=== PATIENT | male | born 1930 | race Caucasian/White ===

== ENCOUNTER 2017-04-01 16:19 | Inpatient (IN) | payer MEDICARE, SELFPAY ==
[2017-04-01] MEDS ORDERED: Furosemide 40 MG/4 ML VIAL IVPUSH ONE (16:32)
[2017-04-01] MEDS ORDERED: Famotidine 20 MG/2 ML SDV IVPUSH ONE (16:32)
--- NOTE | 2017-04-01 16:33 | EDM.PDOC ---
ED HPI GENERAL MEDICAL PROBLEM - General Chief Complaint: Respiratory Problem Stated Complaint: SOB, cough Time Seen by Provider: 04/01/17 16:20 Source of Information: Reports: Patient, Other [place] [facility] [place] Denies: Old Records ([facility] chart/EMR) History Limitations: Reports: No Limitations - History of Present Illness INITIAL COMMENTS - FREE TEXT/NARRATIVE: The patient was brought to the emergency room via wheelchair by the clinic nurse [place] [facility] [place] initial brief evaluation in the clinic clinic with no treatment given. I did receive a telephone consultation by his regular provider , Chaparrita Guy PA-C, [place] [facility] [place] prior to [place] with blood work and chest x-ray results sent to the emergency room for our review. The patient does have a history of increasing dyspnea, clear productive cough, and increased oxygen use to 2.5 L/m since about midnight this past evening. The patient denies any chest pain/pressure, heart flutter, dizziness, orthostasis, orthopnea, diaphoresis, paresthesias, or any other anginal-type symptoms, although his overall activity level is low. No recent history of abdominal pain, heartburn, nausea, diarrhea, melena, gross hematochezia, or any food intolerance, including fatty foods, etc.. No apparent history of fever or known exposure to infection. He denies any noncompliance with his medical therapy. The patient has also continued to smoke. He denies any specific pain or discomfort Onset: Gradual Onset Date: 04/01/17 Onset Time: 00:00 Duration: Constant, Getting Worse Location: Reports: Other (No pain) Quality: Reports: Same as Previous Episode Severity: Moderate (Dyspnea) Improves with: Reports: Rest Worsens with: Reports: Movement (Activity) Context: Reports: Other (As above) Associated Symptoms: Reports: Cough, cough w sputum, Shortness of Breath. Denies: Confusion, Chest Pain, Diaphoresis, Fever/Chills, Headaches, Loss of Appetite, Malaise, Nausea/Vomiting, Rash, Seizure, Syncope, Weakness Treatments PLASTER MAKER: Reports: Other (see below) (None) - Related Data Allergies Allergy/AdvReac Type Severity Reaction Status Date / Time No Known Allergies Allergy Verified 04/01/17 16:25 Home Meds: Home Meds Albuterol Sulfate [Proair Hfa] 2 puff INH Q4H PRN 04/01/17 [History] Aspirin 325 mg PO DAILY 04/01/17 [History] Budesonide/Formoterol Fumarate [Symbicort 160-4.5 Mcg Inhaler] 1 puff IH BID [History] Carvedilol [Coreg] 12.5 mg PO BID 04/01/17 [History] Cholecalciferol (Vitamin D3) [Vitamin D3] 1,000 unit PO DAILY 04/01/17 [History] Folic Acid 800 mcg PO DAILY 04/01/17 [History] Furosemide [Lasix] 40 mg PO DAILY 04/01/17 [History] Methylsulfonylmethane [MSM] 1,000 mg PO DAILY 04/01/17 [History] Multivitamin [Multivitamins] 1 tab PO DAILY 04/01/17 [History] Ranitidine HCl [Ranitidine] 150 mg PO BID 04/01/17 [History] Tiotropium [Spiriva HandiHaler] 1 inh INH BEDTIME 04/01/17 [History] Tuberculin, PPD [Aplisol] 0.1 ml ID ONETIME 04/01/17 [History] Ubidecarenone [Coenzyme Q10] 200 mg PO DAILY 04/01/17 [History] amLODIPine [Norvasc] 10 mg PO DAILY 04/01/17 [History] atorvaSTATin Calcium [Atorvastatin Calcium] 40 mg PO BEDTIME 04/01/17 [History] hydrALAZINE [Apresoline] 20 mg PO TID 04/01/17 [History] Past Medical History HEENT History: Reports: Cataract, Hard of Hearing, Impaired Vision, Other (See Below). Denies: Allergic Rhinitis, Glaucoma, Macular Degeneration, Retinal Detachment Other HEENT History: he wears glasses, he is noncompliant with his hearing aide therapy with history of presbycusis Cardiovascular History: Reports: CAD, Heart Failure, High Cholesterol, Hypertension, [place], PVD, Other (See Below). Denies: Afib, Aneurysm, Arrhythmia, Blood Clots/VTE/DVT, Heart Murmur, Pacemaker, PTCA, Syncope Other Cardiovascular History: Carotid occlusive disease Respiratory History: Reports: COPD, Intubation, Previous, Pulmonary Fibrosis. Denies: PE, Pneumothorax, TB Gastrointestinal History: Reports: Colon Polyp, Diverticulosis, GERD. Denies: Celiac Disease, Cholelithiasis, Chronic Constipation, Chronic Diarrhea, Fecal Incontinence, Gastritis, GI Bleed, Inflammatory Bowel Disease, Irritable Bowel Syndrome, Pancreatitis, PUD Genitourinary History: Reports: BPH, Chronic Renal Insuffiency, Urinary Incontinence, Other (See Below). Denies: Acute Renal Failure, Renal Calculus, STD, UTI, Recurrent Other Genitourinary History: Renal insufficiency with history of hyperkalemia Musculoskeletal History: Reports: Arthritis, Back Pain, Chronic, Neck Pain, Chronic, Osteoarthritis, Osteoporosis. Denies: Amputation, Fracture, Gout, RA, SLE Neurological History: Reports: None, CVA, TIA. Denies: Cerebral Aneurysms, Concussion, Headaches, Chronic, Head Trauma, Migraines, MS, Neuropathy, Diabetic , Neuropathy, Peripheral, Parkinson's, Seizure Psychiatric History: Reports: None. Denies: Abuse, Victim of, ADD, ADHD, Addiction, Anxiety, Depression, Psych Hospitalization(s), PTSD, Suicide Attempt , Suicidal Ideation Endocrine/Metabolic History: Reports: Hyperparathyroidism, Vitamin D Deficiency , Other (See Below). Denies: Diabetes, Type II Other Endocrine/Metabolic History: Secondary hyperparathyroidism Hematologic History: Reports: Anemia, Folic Acid. Denies: Blood Transfusion(s) , Iron Deficiency Immunologic History: Reports: None. Denies: AIDS, HIV, SLE Oncologic (Cancer) History: Reports: Colon, Renal, Other (See Below). Denies: Hodgkin's Lymphoma, Leukemia, Lymphoma, Non-Hodgkin's Lymphoma Other Oncologic History: History of renal and colon cancer with surgery in 2002 as below, unknown type of skin cancer Dermatologic History: Reports: None. Denies: Eczema, Psoriasis - Infectious Disease History Infectious Disease History: Reports: Chicken Pox, Measles, Mumps, Rubella, Shingles (Right-sided facial herpes zoster with borderline herpes ophthalmicus in about 2013). Denies: C-Difficile, Meningitis, Mononucleosis, MRSA, Pertussis (Whooping Cough), Rheumatic Fever, Scarlet Fever, VRE - Past Surgical History Head Surgeries/Procedures: Reports: None HEENT Surgical History: Reports: Cataract Surgery, Eye Surgery, Oral Surgery, Other (See Below). Denies: Adenoidectomy, Laser Surgery, LASIK, Myringotomy w Tube(s), Naso-Sinus Surgery, Tonsillectomy Other HEENT Surgeries/Procedures: Bilateral cataract surgery in his 70s Cardiovascular Surgical History: Reports: None. Denies: Varicose, Vascular Surgery Respiratory Surgical History: Reports: None. Denies: Lung Biopsies, Thoracentesis GI Surgical History: Reports: Appendectomy, Cholecystectomy, Colonoscopy, Polypectomy, Other (See Below). Denies: EGD, Hernia, Abdominal, Hernia, Inguinal, Hernia Repair/Other Other GI Surgeries/Procedures: Appendectomy at age 8; right-sided nephrectomy secondary to renal cancer with concomitant colon resection secondary to colon cancer and cholecystectomy for nonsymptomatic disease in about 2002 with previous excision of multiple colonic polyps, apparent subsequent follow-up negative colonoscopy Male Surgical History: Reports: Circumcision, Nephrectomy, Vasectomy, Other ( See Below). Denies: TURP-Transurethral Resection of Prostate Other Male Surgeries/Procedures: Vasectomy at age 34, circumcision concomitant with appendectomy at age 8, right-sided nephrectomy secondary to cancer as above Endocrine Surgical History: Reports: None. Denies: Thyroid Biopsy Neurological Surgical History: Denies: C-Spine, Discectomy, Laminectomy, Lumbar Spine, Spinal Fusion, Vertebroplasty Musculoskeletal Surgical History: Reports: None. Denies: Arthroscopic Procedure , Carpal Tunnel, Ganglion Cyst, Joint Replacement, ORIF, Shoulder Surgery Oncologic Surgical History: Reports: Other (See Below) Other Oncologic Surgeries/Procedures: As above Dermatological Surgical History: Reports: Skin Biopsy, Other (See Below) Other Dermatological Surgeries/Procedures: Excision for unknown type of skin cancer Social & Family History - Family History HEENT: Reports: Retinal Detachment, Other (See Below). Denies: Glaucoma, Macular Degeneration Other HEENT Family History: Father with retinal detachment Cardiac: Reports: Aneurysm, CAD, [place], Pacemaker, Other (See Below). Denies: Afib , Arrhythmia, Blood Clots/VTE/DVT, Heart Failure, High Cholesterol, Hypertension Other Cardiac Family History: Sister with fatal [place] in her late 80s, mother with pacemaker and fatal [place] in her 50s Respiratory: Reports: None. Denies: Asthma, COPD, PE, Sleep Apnea GI: Reports: None. Denies: GERD, GI bleed, PUD : Reports: None. Denies: Dialysis, Renal Calculus, Renal Disease/ Insufficiency OBGYN: Reports: None. Denies: Endometriosis, Fibroids, Recurrent Spontaneous Musculoskeletal: Reports: None. Denies: Gout, RA, SLE Neurological: Reports: Cerebral Aneurysms, CVA, Other (See Below). Denies: Alzheimers Disease, Dementia, MS, Parkinson's, Seizure, TIA Other Neurological Family History: Sister with hemorrhagic CVA secondary to cerebral aneurysm in her 50s, father with fatal CVA at age 68 Psychiatric: Reports: None. Denies: Abuse, Victim of, ADD, ADHD, Anxiety, Depression, Psych Hospitalization(s), PTSD, Suicide Attempt Endocrine/Metabolic: Reports: Diabetes, type II, IDDM, Other (See Below). Denies: Hypothyroidism Other Endocrine/Metabolic Family History: Mother with AODM, sister with IDDM Hematologic: Reports: None. Denies: Anemia Immunologic: Reports: None. Denies: AIDS, HIV Dermatologic: Reports: None. Denies: Eczema, Psoriasis Oncologic: Reports: Other (See Below) Other Oncologic Family History: Sister with unknown type of fatal abdominal cancer in her late 40s - Tobacco Use Smoking Status *Q: Current Every Day Smoker Tobacco Use Within Last Twelve Months: Cigarettes Years of Tobacco use: 74 Packs/Tins Daily: 1 (Started smoking cigarettes at age 12 with occasional cigar use) Used Tobacco, but Quit: Yes Smoking Cessation Information Provided To Patient: Yes Second Hand Smoke Exposure: No Second Hand Smoke Education Provided: No - Caffeine Use Caffeine Use: Reports: Coffee (3 cups per day), Soda (2 sodas per day), Tea (1 cup every other day). Denies: Energy Drinks - Alcohol Use Alcohol Use History: Yes Days Per Week of Alcohol Use: 7 (No previous DWIs, problems with alcohol abuse, etc.) Number of Drinks Per Day: 1 (Usually rum) Total Drinks Per Week: 7 Alcohol Use in Last Twelve Months: Yes Alcohol Use Frequency: Daily - Recreational Drug Use Recreational Drug Use: No Drug Use in Last 12 Months: No Recreational Drug Type: Denies: Amphetamines (Speed), Cocaine, Heroin, LSD (Acid ), Marijuana/Hashish, Methamphetamine, Morphine - Living Situation & Occupation Living situation: Reports: ( from second in about 2008, from first at age 49 with 2 children from that relationship), Extended Care Facility (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 Denies: Fever, Chills, Malaise, Weakness, Fatigue, Night Sweats, Diaphoresis, Decreased Appetite, Weight Gain HEENT: Reports: Glasses (Occasional), Hearing Loss (Stable moderate bilateral stable by history). Denies: Dental Pain, Ear Pain, Nose Pain, Rhinitis, Sinus Problem, Throat Pain, Throat Swelling, Vertigo, Vision Change Respiratory: Reports: Shortness of Breath, Wheezing, Cough, Sputum (Clear). Denies: Pleuritic Chest Pain Cardiovascular: Reports: Dyspnea on Exertion, Edema (Progressive dependent edema ). Denies: Chest Pain, Blood Pressure Problem, Lightheadedness, Orthopnea, Palpitations, Syncope Endocrine: Reports: No Symptoms. Denies: Fatigue GI/Abdominal: Denies: Abdominal Pain, Anorexia, Black Stool, Bloody Stool, Constipation, Diarrhea, Decreased Appetite, Distension, Hematemesis, Hematochezia, Melena, Nausea, Stool Incontinence, Vomiting : Reports: No Symptoms, Incontinence (Stable by history). Denies: Dysuria, Flank Pain, Frequency, Hematuria, Pain, Urgency, Urinary Retention Musculoskeletal: Reports: No Symptoms. Denies: Neck Pain, Shoulder Pain, Arm Pain, Back Pain, Leg Pain Skin: Reports: No Symptoms. Denies: Diaphoresis, Wound Neurological: Reports: Weakness (Nonspecific generalized). Denies: Confusion, Dizziness, Headache, Numbness, Paresthesia, Seizure, Syncope, Tingling Psychiatric: Reports: No Symptoms. Denies: Agitation, Anxiety, Confusion, Depression, Hallucinations Hematologic/Lymphatic: Reports: Anemia (Progressive) Immunologic: Reports: No Symptoms ED EXAM, GENERAL - Physical Exam Exam: See Below Exam Limited By: No Limitations General Appearance: Alert, WD/WN, No Apparent Distress Eye Exam: Bilateral Eye: EOMI, Normal Inspection (No nystagmus), PERRL Ears: Normal External Exam, Normal Canal, Normal TMs, Hearing Loss (Moderate bilateral presbycusis no hearing aids) Nose: Normal Inspection, Normal Mucosa, No Blood, Clear Rhinorrhea (Mild) Throat/Mouth: Normal Inspection, Normal Lips, Normal Gums, Normal Oropharynx, Normal Voice, No Airway Compromise. No: Normal Teeth (Complete dentures uppers and lowers) Head: Atraumatic, Normocephalic, Facial Swelling (Mild anasarca). No: Facial Tenderness, Sinus Tenderness Neck: Normal Inspection, Supple, Non-Tender, Full Range of Motion, Carotid Bruit (Mild bilateral carotid bruits). No: Lymphadenopathy (L), Lymphadenopathy (R), Thyromegaly Respiratory/Chest: No Respiratory Distress, No Accessory Muscle Use, Chest Non- Tender, Decreased Breath Sounds (Left base), Rales (Moderate bilateral basilar rales), Rhonchi (Mild diffuse bilateral), Wheezing (Occasional). No: Pleural Rub, Retractions, Splinting Cardiovascular: Normal Peripheral Pulses, Regular Rate, Rhythm (Although occasional borderline bradycardia), No Edema, No Gallop, No JVD, No Murmur, No Rub, Bradycardia (As above). No: Gallop/S3, Gallop/S4, Friction Rub Peripheral Pulses: 2+: Radial (L), Radial (R), Dorsalis Pedis (L), Dorsalis Pedis (R) GI/Abdominal: Normal Bowel Sounds, Soft, Non-Tender, No Organomegaly, No Distention, No Abnormal Bruit, No Mass, Pelvis Stable, Other (Large midline abdominal incisions). No: Guarding (Male) Exam: Deferred Rectal (Males) Exam: Normal Rectal Tone, BPH (Moderate nonnodular BPH), Heme - Stool, Hemorrhoids (Grade 23 internal/external hemorrhoids). No: Black Stool, Bloody Stool, Fecal Impaction, Prostate Nodule, Tenderness (No Enrike space tenderness) Back Exam: Normal Inspection, Full Range of Motion. No: CVA Tenderness (L), CVA Tenderness (R), Muscle Spasm Extremities: Normal Range of Motion, Non-Tender, Normal Capillary Refill, Pedal Edema (+2 to +3 bilateral pitting pedal/pretibial edema). No: Travis's Sign Neurological: Alert, Oriented, CN II-XII Intact, Normal Cognition, Normal Gait, Normal Reflexes (Negative Babinski's), No Motor/Sensory Deficits Psychiatric: Normal Affect, Normal Mood Skin Exam: Warm, Dry, Intact, Normal Color, No Rash, Pallor (Mild). No: Diaphoretic, Ecchymosis, Petechiae, Wound/Incision Lymphatic: No Adenopathy EKG INTERPRETATION EKG Date: 04/01/17 Time: 16:32 Rhythm: NSR (Sinus bradycardia) Rate (Beats/Min): 56 [place]: Normal (Neutral) P-Wave: Present (Mild diffuse biphasic P waves with T-wave inversion in lead V1 and extreme poor R-wave progression in the anterior leads) QRS: Other (QRS interval of 0.10 seconds representing an incomplete bifascicular bundle branch block) ST-T: Normal QT: Normal NE/PQ Interval: 0.15 seconds Comparison: NA - No Prior EKG EKG Interpretation Comments: 1. No acute ischemic changes 2. Incomplete bifascicular bundle branch block Course - Vital Signs Last Recorded V/S: Last Vital Signs Temp 36.4 C 04/01/17 16:22 Pulse 63 04/01/17 17:15 Resp 19 04/01/17 17:15 BP 155/71 H 04/01/17 17:15 Pulse Ox 90 L 04/01/17 17:15 Vital Signs - 24 hr 04/01/17 04/01/17 04/01/17 16:22 16:30 16:45 Temperature [ 36.4 C Temporal] Pulse, 57 L 57 L 62 Peripheral [ Right Pulse Oximetry] Respiratory 14 14 Rate Blood Pressure 155/53 H 155/55 H [Right Upper Arm] O2 Sat by Pulse 2 L 97 91 L Oximetry 04/01/17 04/01/17 04/01/17 17:00 17:15 17:30 Temperature [ Temporal] Pulse, 60 63 60 Peripheral [ Right Pulse Oximetry] Respiratory 19 19 19 Rate Blood Pressure 155/71 H 164/50 H [Right Upper Arm] O2 Sat by Pulse 95 90 L 96 Oximetry 04/01/17 04/01/17 04/01/17 17:43 18:00 18:18 Temperature [ Temporal] Pulse, 65 62 66 Peripheral [ Right Pulse Oximetry] Respiratory 19 20 18 Rate Blood Pressure 153/50 H 163/53 H 160/49 H [Right Upper Arm] O2 Sat by Pulse 92 L 97 90 L Oximetry - Orders/Labs/Meds Orders: Active Orders 24 hr Category Date Time Status EKG Documentation Completion [RC] ASDIRECTED Care 04/01/17 16:30 Active Oxygen Therapy, ED [RC] CONTINUOUS Care 04/01/17 16:28 Active Peripheral IV Care [RC] . DIRECTED Care 04/01/17 16:30 Active Pulse Oximetry [RC] CONTINUOUS Care 04/01/17 16:29 Active RT Aerosol Therapy [RC] ASDIRECTED Care 04/01/17 17:12 Active Up With Assistance [RC] PFP Care 04/01/17 16:30 Active Nothing per Oral Now Diet [DIET] Diet 04/01/17 Breakfast Active CULTURE BLOOD [BC] Stat Lab 04/01/17 16:50 Received CULTURE BLOOD [BC] Stat Lab 04/01/17 17:15 Received OCCULT BLOOD DIAGNOSTIC [OP] Stat Lab 04/01/17 16:28 Ordered Sodium Chloride 0.9% [Saline Flush] Med 04/01/17 16:27 Active 10 ml FLUSH ASDIRECTED PRN Blood Culture x2 Reflex Set [OM.PC] Urgent Oth 04/01/17 16:27 Ordered Obtain Past Medical Record [OM.PC] Urgent Oth 04/01/17 16:28 Active Peripheral IV Insertion Adult [OM.PC] Stat Oth 04/01/17 16:29 Ordered Resuscitation Status Routine Resus Stat 04/01/17 16:30 Ordered Medication Orders Sodium Chloride (Saline Flush) 10 ml FLUSH ASDIRECTED PRN PRN Reason: Keep Vein Open Last Admin: 04/01/17 17:25 Dose: 10 ml Labs: Laboratory Tests 04/01/17 04/01/17 04/01/17 Range/Units 16:50 16:50 16:50 PT (9.8-11.7) SEC INR APTT (23.5-30.0) SEC D-Dimer, Quantitative 1250 H (0-400) ng/mL Hemoglobin A1c 5.2 (4.3-5.7) % Lactic Acid (0.4-2.0) mmol/L Uric Acid 6.4 (2.6-7.2) mg/dL Phosphorus 4.8 H (2.6-4.7) mg/dL Magnesium 1.9 (1.8-2.4) mg/dL Creatine Kinase 106 (26-308) U/L Creatine Kinase Index 2.5 (0.0-2.5) % CK-MB (CK-2) 2.70 (0.00-3.60) ng/mL Troponin I 0.006 (0.000-0.056) ng/mL TSH, Ultra Sensitive 3.507 (0.358-3.740) mIU/mL 04/01/17 04/01/17 04/01/17 Range/Units 16:50 16:50 16:50 PT 10.7 (9.8-11.7) SEC INR 1.0 APTT 28.7 (23.5-30.0) SEC D-Dimer, Quantitative (0-400) ng/mL Hemoglobin A1c (4.3-5.7) % Lactic Acid 0.8 (0.4-2.0) mmol/L Uric Acid (2.6-7.2) mg/dL Phosphorus (2.6-4.7) mg/dL Magnesium (1.8-2.4) mg/dL Creatine Kinase (26-308) U/L Creatine Kinase Index (0.0-2.5) % CK-MB (CK-2) (0.00-3.60) ng/mL Troponin I (0.000-0.056) ng/mL TSH, Ultra Sensitive (0.358-3.740) mIU/mL [place] [facility] [place] a normal comprehensive metabolic panel with exception of potassium of 5.2, chloride 108, BUN of 47, creatinine of 2.75, total protein of 5.7 and albumin of 2.1. CRP elevated to 3.4, BNP elevated at 30 ,759. CBC was normal with exception of progressive decreased hemoglobin of 8.9 with hemoglobin of 9.9 on 03/29/17. Hematocrit decreased to 27.4 and MCV 104.6. Microbiology 04/01/17 16:28 Stool Occult Blood (LIZETTE) - Final Stool / Feces NEGATIVE OCCULT BLOOD Meds: Medications Generic Name Dose Route Start Last Admin Trade Name Freq PRN Reason Stop Dose Admin Sodium Chloride 10 ml 04/01/17 16:27 04/01/17 17:25 Saline Flush FLUSH 10 ml ASDIRECTED PRN Administration Keep Vein Open Discontinued Medications Generic Name Dose Route Start Last Admin Trade Name Freq PRN Reason Stop Dose Admin Albuterol/Ipratropium 3 ml 04/01/17 17:12 04/01/17 17:15 Duoneb 3.0-0.5 Mg/3 Ml NEB 04/01/17 17:13 3 ml ONETIME ONE Administration Budesonide 0.5 mg 04/01/17 17:12 04/01/17 17:24 Pulmicort NEB 04/01/17 17:13 0.5 mg ONETIME ONE Administration Famotidine 40 mg 04/01/17 16:32 04/01/17 16:55 Pepcid IVPUSH 04/01/17 16:33 40 mg ONETIME ONE Administration Furosemide 60 mg 04/01/17 16:32 04/01/17 16:55 Lasix IVPUSH 04/01/17 16:33 60 mg NOW ONE Administration Morphine Sulfate 2 mg 04/01/17 17:44 04/01/17 17:49 Morphine .XX 04/01/17 17:45 2 mg ONETIME ONE Administration - Radiology Interpretation Free Text/Narrative:: Gun Number shows normal sinus rhythm with occasional mild sinus bradycardia in the high 50s with average rate in the low 60s. No ectopy or arrhythmia Chest x-ray, 2 views, shows evidence of moderate COPD and pulmonary fibrotic changes with questionable right middle lobe infiltrate. Mild aortic valve calcification and prominence of aortic arch with no cardiomegaly, however moderate CHF including moderate left-sided pleural effusion and small right sided pleural effusion. Moderate osteoarthritic and osteoporotic changes in the thoracic spine. Departure - Departure Time of Disposition: 18:20 Disposition: Admitted As Inpatient 65 Condition: Poor Clinical Impression: CHF (congestive heart failure), Pneumonia, COPD (chronic obstructive pulmonary disease), Coronary artery disease, Osteoarthritis, Macrocytic anemia, Peptic reflux disease, Hypertension, Renal insufficiency, Secondary hyperparathyroidism , Hyperlipidemia, Comfort measures only status, D-dimer, elevated, Tobacco abuse counseling, Hyperphosphatemia, Hypoalbuminemia - Discharge Information - Problem List & Annotations (1) CHF (congestive heart failure) SNOMED Code(s): 19724715 Code(s): I50.9 - HEART FAILURE, UNSPECIFIED Status: Acute Priority: High Current Visit: Yes Onset Date: 04/01/17 Annotation/Comment:: Significant CHF based on clinical exam, BNP, and chest x-ray today. High-dose IV Lasix given in the emergency room. No further extensive cardiac workup, including echocardiogram, etc. per his comfort care status as below. Continue aggressive IV Lasix therapy. Telephone consultation at 17:[address] Gavin, hospitalist at the [facility], who does not have a bed available in that facility. Various therapeutic options were discussed with the patient who agrees to admission to our facility. Initiate standard rule out [place] orders, however no recent anginal complaints. Giancarlo Luna M.D., at the [facility], assumes patient care in the pending sale to [facility] area. Observe left pleural effusion for now with consideration of thoracentesis, if this remains refractory to aggressive Lasix therapy Qualifiers: Congestive heart failure type: unspecified congestive heart failure type Congestive heart failure chronicity: acute on chronic Qualified Code(s): I50.9 - Heart failure, unspecified (2) Coronary artery disease SNOMED Code(s): 99386996 Code(s): I25.10 - ATHSCL HEART DISEASE OF [place] CORONARY ARTERY W/O ANG PCTRS Status: Chronic Priority: High Current Visit: Yes Annotation/ Comment:: Patient apparently has a distant history of [place], however specifics unknown and patient could not give us more detail. No recent chest pain or anginal type symptoms with chest pain protocol not initiated in the emergency room. Otherwise as above Qualifiers: Coronary Disease-Associated Artery/Lesion type: [place] artery [place] vs. transplanted heart: [place] heart Associated angina: without angina Qualified Code(s): I25.10 - Atherosclerotic heart disease of [place] coronary artery without angina pectoris (3) Pneumonia SNOMED Code(s): 622806217 Code(s): J18.9 - PNEUMONIA, UNSPECIFIED ORGANISM Status: Acute Priority: High Current Visit: Yes Onset Date: 04/01/17 Annotation/Comment:: Possible right middle lobe pneumonia as above. Blood cultures 2 were collected. Initiate IV antibiotic therapy and aggressive nebulizer treatments shortly after admission Qualifiers: Pneumonia type: due to unspecified organism Laterality: right Lung location: middle lobe of lung Qualified Code(s): J18.1 - Lobar pneumonia, unspecified organism (4) Comfort measures only status SNOMED Code(s): 19535831975865 Code(s): Z51.5 - ENCOUNTER FOR PALLIATIVE CARE Status: Chronic Priority: High Current Visit: Yes Onset Date: 04/01/17 Annotation/Comment:: Comfort Care status/NO CODE status confirmed with the patient today, although he is agreeable to transfer to [facility] (5) COPD (chronic obstructive pulmonary disease) SNOMED Code(s): 93892846 Code(s): J44.9 - CHRONIC OBSTRUCTIVE PULMONARY DISEASE, UNSPECIFIED Status : Acute Priority: High Current Visit: Yes Annotation/Comment:: COPD exacerbation secondary to possible middle lobe pneumonia however note concomitant CHF and 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 Triple nebulizer treatment given in the emergency room with additional morphine nebulizer treatment required prior to admission Qualifiers: COPD type: COPD with acute lower respiratory infection Qualified Code(s): J44.0 - Chronic obstructive pulmonary disease with acute lower respiratory infection (6) Hyperlipidemia SNOMED Code(s): 77479610 Code(s): E78.5 - HYPERLIPIDEMIA, UNSPECIFIED Status: Chronic Priority: Medium Current Visit: Yes Annotation/Comment:: Lipid panel in the a.m. Qualifiers: Hyperlipidemia type: unspecified Qualified Code(s): E78.5 - Hyperlipidemia , unspecified (7) Hypertension SNOMED Code(s): 79927506 Code(s): I10 - ESSENTIAL (PRIMARY) HYPERTENSION Status: Chronic Priority : Medium Current Visit: Yes Annotation/Comment:: Blood pressures were under good control in the emergency room Qualifiers: Hypertension type: essential hypertension Qualified Code(s): I10 - Essential (primary) hypertension (8) Macrocytic anemia SNOMED Code(s): 08088650 Code(s): D53.9 - NUTRITIONAL ANEMIA, UNSPECIFIED Status: Acute Priority: Medium Current Visit: Yes Annotation/Comment:: Note progressive anemia with history of folic acid deficiency. No direct evidence of acute GI bleed. Also note significant renal disease as above, previous nephrectomy, etc.. Further workup for anemia in the a.m. (9) Osteoarthritis SNOMED Code(s): 437759166 Code(s): M19.90 - UNSPECIFIED OSTEOARTHRITIS, UNSPECIFIED SITE Status: Chronic Priority: Medium Current Visit: Yes Annotation/Comment:: Stable by history Qualifiers: Osteoarthritis location: multiple joints Osteoarthritis type: primary Qualified Code(s): M15.0 - Primary generalized (osteo)arthritis (10) Peptic reflux disease SNOMED Code(s): 11340352 Code(s): K21.9 - GASTRO-ESOPHAGEAL REFLUX DISEASE WITHOUT ESOPHAGITIS Status: Chronic Priority: Medium Current Visit: Yes Annotation/Comment:: Stable by history with high-dose IV Pepcid given in the emergency room (11) Renal insufficiency SNOMED Code(s): 003864263 Code(s): N28.9 - DISORDER OF KIDNEY AND URETER, UNSPECIFIED Status: Chronic Priority: High Current Visit: Yes Annotation/Comment:: Continue to observe closely especially with IV Lasix therapy. Note some mild hyperkalemia today (12) Secondary hyperparathyroidism SNOMED Code(s): 89006948 Code(s): N25.81 - SECONDARY HYPERPARATHYROIDISM OF RENAL ORIGIN Status: Chronic Priority: Medium Current Visit: Yes Annotation/Comment:: Likely secondary to renal disease. Observe for now. Consider PTH depending on his clinical course (13) Tobacco abuse counseling SNOMED Code(s): 632219159, 781116136, 452523471 Code(s): Z71.6 - TOBACCO ABUSE COUNSELING Status: Chronic Priority: Medium Current Visit: Yes Annotation/Comment:: Tobacco cessation strongly encouraged, however he is not interested in this at this time (14) D-dimer, elevated SNOMED Code(s): 850754947 Code(s): R79.89 - OTHER SPECIFIED ABNORMAL FINDINGS OF BLOOD CHEMISTRY Status: Acute Priority: High Current Visit: Yes Onset Date: 04/01/17 Annotation/Comment:: No direct clinical evidence of a PE or DVT, however patient is not a candidate for CTA of the chest secondary to his renal disease. Venous Doppler studies of the lower extremities are to be conducted in the a.m. (15) Hyperphosphatemia SNOMED Code(s): 14784067 Code(s): E83.39 - OTHER DISORDERS OF PHOSPHORUS METABOLISM Status: Acute Priority: Medium Current Visit: Yes Onset Date: 04/01/17 Annotation/ Comment:: Note renal insufficiency. Initiate PhosLo (16) Hypoalbuminemia SNOMED Code(s): 052722693 Code(s): E88.09 - OTH DISORDERS OF PLASMA-PROTEIN METABOLISM, NEC Status: Acute Priority: Medium Current Visit: Yes Onset Date: 04/01/17 Annotation/Comment:: Initiate high-protein Glucerna supplements as snacks with caution secondary to his renal insufficiency - Problem List Review Problem List Initiated/Reviewed/Updated: Yes - My Orders Last 24 Hours: My Active Orders 04/01/17 16:27 Sodium Chloride 0.9% [Saline Flush] 10 ml FLUSH ASDIRECTED PRN Blood Culture x2 Reflex Set [OM.PC] Urgent 04/01/17 16:28 Oxygen Therapy, ED [RC] CONTINUOUS OCCULT BLOOD DIAGNOSTIC [OP] Stat Obtain Past Medical Record [OM.PC] Urgent 04/01/17 16:29 Pulse Oximetry [RC] CONTINUOUS Peripheral IV Insertion Adult [OM.PC] Stat 04/01/17 16:30 EKG Documentation Completion [RC] ASDIRECTED Peripheral IV Care [RC] . DIRECTED Up With Assistance [RC] PFP Resuscitation Status Routine 04/01/17 16:50 CULTURE BLOOD [BC] Stat 04/01/17 17:12 RT Aerosol Therapy [RC] ASDIRECTED 04/01/17 17:15 CULTURE BLOOD [BC] Stat 04/01/17 Breakfast Nothing per Oral Now Diet [DIET] - Assessment/Plan Admission H&P: Please use this note as an admission H&P Last 24 Hours: My Active Orders 04/01/17 16:27 Sodium Chloride 0.9% [Saline Flush] 10 ml FLUSH ASDIRECTED PRN Blood Culture x2 Reflex Set [OM.PC] Urgent 04/01/17 16:28 Oxygen Therapy, ED [RC] CONTINUOUS OCCULT BLOOD DIAGNOSTIC [OP] Stat Obtain Past Medical Record [OM.PC] Urgent 04/01/17 16:29 Pulse Oximetry [RC] CONTINUOUS Peripheral IV Insertion Adult [OM.PC] Stat 04/01/17 16:30 EKG Documentation Completion [RC] ASDIRECTED Peripheral IV Care [RC] . DIRECTED Up With Assistance [RC] PFP Resuscitation Status Routine 04/01/17 16:50 CULTURE BLOOD [BC] Stat 04/01/17 17:12 RT Aerosol Therapy [RC] ASDIRECTED 04/01/17 17:15 CULTURE BLOOD [BC] Stat 04/01/17 Breakfast Nothing per Oral Now Diet [DIET] Assessment:: As above Plan: As above. Extensive precautions were given to the patient, who is in agreement with the treatment plan. The patient will require about 3-4 days of inpatient/ acute care secondary to multiple health problems as above.
[2017-04-01] MEDS ORDERED: Albuterol/Ipratropium 3.0-0.5 MG/3 ML Neb Soln NEB ONE (17:12)
[2017-04-01] MEDS ORDERED: Budesonide 0.5 MG/2 ML Neb Susp NEB ONE (17:12)
[2017-04-01] MEDS: Sodium Chloride 0.9% 10 ML Syringe FLUSH PRN ×2 (17:25→20:22)
[2017-04-01] MEDS ORDERED: Morphine 2 MG/ML Syringe ONE (17:44)
[2017-04-01] MEDS ORDERED: Temazepam 15 MG Cap PO PRN (18:25)
[2017-04-01] MEDS ORDERED: Albuterol/Ipratropium 3.0-0.5 MG/3 ML Neb Soln NEB PRN (18:25)
[2017-04-01] MEDS ORDERED: Morphine 2 MG/ML Syringe IVPUSH PRN (18:37)
[2017-04-01] MEDS: Sodium Chloride 0.9% 10 ML Syringe FLUSH SCH (19:33)
[2017-04-01] MEDS: Calcium Acetate 667 MG Cap PO SCH (19:33)
[2017-04-01] MEDS: Albuterol/Ipratropium 3.0-0.5 MG/3 ML Neb Soln NEB SCH (19:35)
[2017-04-01] MEDS: cefTRIAXone 1 GM in Sodium Chloride 0.9% 100 ML IV SCH (19:35)
[2017-04-01] MEDS ORDERED: atorvaSTATin 40 MG Tab PO SCH (20:00)
[2017-04-01] MEDS ORDERED: Tiotropium Inhaler 18 MCG Inhalation Powder Cap Kit of 5 INH SCH (20:00)
[2017-04-01] MEDS ORDERED: Ciprofloxacin in D5W 200 MG in Premix Bag 1 BAG IV SCH ×2 (20:00)
[2017-04-01] MEDS ORDERED: Albuterol/Ipratropium 3.0-0.5 MG/3 ML Neb Soln NEB SCH (20:00)
[2017-04-02] MEDS: Albuterol 0.083% 2.5 MG/3 ML Neb Soln NEB PRN ×3 (00:08→13:57)
[2017-04-02] MEDS: Sodium Chloride 0.9% 10 ML Syringe FLUSH PRN ×2 (00:09→15:10)
[2017-04-02] MEDS: Furosemide 40 MG/4 ML VIAL IVPUSH SCH ×3 (00:09→07:06)
[2017-04-02] MEDS: Albuterol/Ipratropium 3.0-0.5 MG/3 ML Neb Soln NEB SCH ×3 (02:04→13:05)
[2017-04-02] MEDS: cefTRIAXone 1 GM in Sodium Chloride 0.9% 100 ML IV SCH (06:40)
[2017-04-02] MEDS: Sodium Chloride 0.9% 10 ML Syringe FLUSH SCH (06:41)
[2017-04-02] MEDS: Budesonide 0.5 MG/2 ML Neb Susp NEB SCH ×2 (06:41→09:10)
[2017-04-02] MEDS ORDERED: Magnesium Sulfate (4.06 MEQ/ML) 1 GM/2 ML SDV IV ONE (06:59)
[2017-04-02] MEDS ORDERED: Morphine 2 MG/ML Syringe IVPUSH PRN ×2 (07:03→15:00)
[2017-04-02] MEDS ORDERED: Magnesium Sulfate/Water 2 GM in Premix Bag 1 BAG IV ONE (07:30)
[2017-04-02] MEDS: Calcium Acetate 667 MG Cap PO SCH (07:42)
[2017-04-02] MEDS ORDERED: Dextromethorphan/guaiFENesin 600-30 MG Tab.ER PO SCH (08:00)
[2017-04-02] MEDS ORDERED: FOLIC ACID 800 MCG PO SCH (08:00)
[2017-04-02] MEDS ORDERED: Non-Formulary Medication 1 Each (Budesonide/Formoterol Fumarate 1 PUFF) IH SCH (08:00)
[2017-04-02] MEDS ORDERED: Carvedilol 12.5 MG Tab PO SCH (08:00)
[2017-04-02] MEDS ORDERED: Folic Acid 1 MG Tab PO SCH (08:00)
[2017-04-02] MEDS ORDERED: amLODIPine 5 MG Tab PO SCH (08:00)
[2017-04-02] MEDS ORDERED: Aspirin 325 MG Tab PO SCH (08:00)
[2017-04-02] MEDS: HYDRALAZINE 10 MG PO SCH ×2 (09:10→12:54)
[2017-04-02] MEDS ORDERED: Furosemide 40 MG/4 ML VIAL IVPUSH SCH (12:00)
--- NOTE | 2017-04-02 12:39 | PCM.PN ---
- General Info Date of Service: 04/02/17 Functional Status: Reports: Other (SOB) - Review of Systems General: Reports: Weakness, Fatigue HEENT: Reports: No Symptoms Pulmonary: Reports: Shortness of Breath Cardiovascular: Reports: No Symptoms Gastrointestinal: Reports: No Symptoms Genitourinary: Reports: Incontinence, Other ([place] placed) Musculoskeletal: Reports: No Symptoms Skin: Reports: No Symptoms Neurological: Reports: No Symptoms Psychiatric: Reports: No Symptoms Systems Review Comment:: Patient complains of shortness of breath worse in the morning was decreased feels better now - Patient Data Vitals - Most Recent: Last Vital Signs Temp 97.8 F 04/02/17 09:52 Pulse 61 04/02/17 09:52 Resp 20 04/02/17 09:52 BP 157/55 H 04/02/17 09:52 Pulse Ox 92 L 04/02/17 09:52 Weight - Most Recent: 157 lb I&O - Last 24 Hours: Intake & Output 04/01/17 04/02/17 04/02/17 22:59 06:59 14:59 Intake Total 650 1050 Output Total 420 950 Balance 230 -950 1050 Lab Results Last 24 Hours: Laboratory Results - last 24 hr 04/02/17 04/02/17 04/02/17 Range/Units 07:00 07:00 07:00 WBC 8.2 (4.0-10.2) K/uL RBC 2.60 L (4.33-5.41) M/uL Hgb 8.8 L (13.1-16.8) g/dL Hct 27.4 L (39.0-49.0) % MCV 105.4 H (84.0-98.0) fL MCH 33.8 H (28.2-33.3) pg MCHC 32.1 (31.7-36.0) g/dL RDW 14.7 H (11.2-14.1) % Plt Count 195 (150-350) K/uL Neut % (Auto) 72.9 (45.0-80.0) % Lymph % (Auto) 9.7 L (10.0-50.0) % [place] % (Auto) 12.4 (2.0-14.0) % Eos % (Auto) 4.6 (0.0-5.0) % Baso % (Auto) 0.4 (0.0-2.0) % Neut # (Auto) 5.99 (1.40-7.00) K/uL Lymph # (Auto) 0.80 (0.50-3.50) K/uL [place] # (Auto) 1.02 H (0.00-1.00) K/uL Eos # (Auto) 0.38 (0.00-0.50) K/uL Baso # (Auto) 0.03 (0.00-0.20) K/uL D-Dimer, Quantitative 1500 H (0-400) ng/mL Sodium 142 (136-145) mmol/L Potassium 4.5 (3.5-5.1) mmol/L Chloride 108 H (98-107) mmol/L Carbon Dioxide 30.2 (21.0-32.0) mmol/L BUN 47 H (7-18) mg/dL Creatinine 2.79 H (0.51-1.17) mg/dL Est Cr Clr Drug Dosing 18.79 mL/min Estimated GFR (MDRD) 22 mL/min Glucose 97 (74-106) mg/dL Calcium 8.2 L (8.5-10.1) mg/dL Iron (50-175) ug/dL TIBC (250-450) ug/dL % Saturation Ferritin (8-388) ng/mL Total Bilirubin 0.2 (0.2-1.0) mg/dL AST 24 (15-37) U/L ALT 20 (12-78) U/L Alkaline Phosphatase 68 (46-116) IU/L Creatine Kinase 81 (26-308) U/L Creatine Kinase Index 3.2 H (0.0-2.5) % CK-MB (CK-2) 2.60 (0.00-3.60) ng/mL Troponin I 0.016 (0.000-0.056) ng/mL NT-Pro-B Natriuret Pep 71530 H (0-125) pg/mL Total Protein 5.5 L (6.4-8.2) g/dL Albumin 2.0 L (3.4-5.0) g/dL Triglycerides 59 (30-150) mg/dL Cholesterol 132 (100-200) mg/dL LDL Cholesterol, Calc 43 (0-100) mg/dL HDL Cholesterol 77 H (40-60) mg/dL Vitamin B12 585 (193-986) pg/mL 04/02/17 Range/Units 07:00 WBC (4.0-10.2) K/uL RBC (4.33-5.41) M/uL Hgb (13.1-16.8) g/dL Hct (39.0-49.0) % MCV (84.0-98.0) fL MCH (28.2-33.3) pg MCHC (31.7-36.0) g/dL RDW (11.2-14.1) % Plt Count (150-350) K/uL Neut % (Auto) (45.0-80.0) % Lymph % (Auto) (10.0-50.0) % [place] % (Auto) (2.0-14.0) % Eos % (Auto) (0.0-5.0) % Baso % (Auto) (0.0-2.0) % Neut # (Auto) (1.40-7.00) K/uL Lymph # (Auto) (0.50-3.50) K/uL [place] # (Auto) (0.00-1.00) K/uL Eos # (Auto) (0.00-0.50) K/uL Baso # (Auto) (0.00-0.20) K/uL D-Dimer, Quantitative (0-400) ng/mL Sodium (136-145) mmol/L Potassium (3.5-5.1) mmol/L Chloride (98-107) mmol/L Carbon Dioxide (21.0-32.0) mmol/L BUN (7-18) mg/dL Creatinine (0.51-1.17) mg/dL Est Cr Clr Drug Dosing mL/min Estimated GFR (MDRD) mL/min Glucose (74-106) mg/dL Calcium (8.5-10.1) mg/dL Iron 27 L (50-175) ug/dL TIBC 198 L (250-450) ug/dL % Saturation 13.25141 Ferritin 95 (8-388) ng/mL Total Bilirubin (0.2-1.0) mg/dL AST (15-37) U/L ALT (12-78) U/L Alkaline Phosphatase (46-116) IU/L Creatine Kinase (26-308) U/L Creatine Kinase Index (0.0-2.5) % CK-MB (CK-2) (0.00-3.60) ng/mL Troponin I (0.000-0.056) ng/mL NT-Pro-B Natriuret Pep (0-125) pg/mL Total Protein (6.4-8.2) g/dL Albumin (3.4-5.0) g/dL Triglycerides (30-150) mg/dL Cholesterol (100-200) mg/dL LDL Cholesterol, Calc (0-100) mg/dL HDL Cholesterol (40-60) mg/dL Vitamin B12 (193-986) pg/mL Med Orders - Current: Current Medications Albuterol (Proventil Neb Soln) 2.5 mg NEB Q2H PRN PRN Reason: Dyspnea Last Admin: 04/02/17 05:58 Dose: 2.5 mg Albuterol/Ipratropium (Duoneb 3.0-0.5 Mg/3 Ml) 3 ml NEB Q4HRRT PRN PRN Reason: Dyspnea Last Admin: 04/02/17 06:41 Dose: 3 ml Albuterol/Ipratropium (Duoneb 3.0-0.5 Mg/3 Ml) 3 ml NEB Q6HRRT [facility] Last Admin: 04/02/17 09:10 Dose: 3 ml Amlodipine Besylate (Norvasc) 10 mg PO DAILY [facility] Last Admin: 04/02/17 07:43 Dose: 10 mg Aspirin (Aspirin) 325 mg PO DAILY [facility] Last Admin: 04/02/17 07:42 Dose: 325 mg Atorvastatin Calcium (Lipitor) 40 mg PO BEDTIME [facility] Last Admin: 04/01/17 19:33 Dose: 40 mg Budesonide (Pulmicort) 0.5 mg NEB BIDRT [facility] Last Admin: 04/02/17 09:10 Dose: Not Given Calcium Acetate (Phoslo) 667 mg PO BIDMEALS [facility] Last Admin: 04/02/17 07:42 Dose: 667 mg Carvedilol (Coreg) 12.5 mg PO BID [facility] Last Admin: 04/02/17 07:43 Dose: 12.5 mg Coenzyme Q10 (Coenzyme Q10) 200 mg PO DAILY [facility] Last Admin: 04/02/17 07:43 Dose: 200 mg Famotidine (Pepcid) 20 mg IVPUSH QPM [facility] Folic Acid (Folic Acid) 1 mg PO DAILY [facility] Last Admin: 04/02/17 09:10 Dose: 1 mg Furosemide (Lasix) 40 mg IVPUSH Q6H [facility] Guaifenesin/Dextromethorphan (Mucinex Dm Er 600-30 Mg) 1 tab PO BID [facility] Last Admin: 04/02/17 07:42 Dose: 1 tab Ceftriaxone Sodium 1 gm/ (Sodium Chloride) 100 mls @ 200 mls/hr IV Q12H [facility] Last Admin: 04/02/17 06:40 Dose: 200 mls/hr Ciprofloxacin/Dextrose 200 mg/ (Premix) 100 mls @ 100 mls/hr IV Q24H [facility] Last Admin: 04/01/17 20:19 Dose: 100 mls/hr Morphine Sulfate (Morphine) 2 mg IVPUSH Q1H PRN PRN Reason: Dyspnea Hydralazine [ Apresoline] 10mg Tabs 20 mg PO TID [facility] Last Admin: 04/02/17 09:10 Dose: 20 mg Sodium Chloride (Saline Flush) 10 ml FLUSH ASDIRECTED PRN PRN Reason: Keep Vein Open Last Admin: 04/02/17 00:09 Dose: 10 ml Sodium Chloride (Saline Flush) 10 ml FLUSH Q12H [facility] Last Admin: 04/02/17 06:41 Dose: 10 ml Temazepam (Restoril) 15 mg PO BEDTIME PRN PRN Reason: Insomnia Tiotropium [place] (Spiriva Handihaler) 18 mcg INH BEDTIME [facility] Last Admin: 04/01/17 19:34 Dose: 1 inhalation Discontinued Medications Albuterol/Ipratropium (Duoneb 3.0-0.5 Mg/3 Ml) 3 ml NEB ONETIME ONE Stop: 04/01/17 17:13 Last Admin: 04/01/17 17:15 Dose: 3 ml Albuterol/Ipratropium (Duoneb 3.0-0.5 Mg/3 Ml) 3 ml NEB Q6HRRT [facility] Budesonide (Pulmicort) 0.5 mg NEB ONETIME ONE Stop: 04/01/17 17:13 Last Admin: 04/01/17 17:24 Dose: 0.5 mg Famotidine (Pepcid) 40 mg IVPUSH ONETIME ONE Stop: 04/01/17 16:33 Last Admin: 04/01/17 16:55 Dose: 40 mg Furosemide (Lasix) 60 mg IVPUSH NOW ONE Stop: 04/01/17 16:33 Last Admin: 04/01/17 16:55 Dose: 60 mg Furosemide (Lasix) 40 mg IVPUSH Q8H [facility] Last Admin: 04/02/17 07:06 Dose: Not Given Magnesium Sulfate 2 gm/ Premix 50 mls @ 25 mls/hr IV ONETIME ONE Stop: 04/02/17 09:29 Last Admin: 04/02/17 07:38 Dose: 25 mls/hr Morphine Sulfate (Morphine) 2 mg .XX ONETIME ONE Stop: 04/01/17 17:45 Last Admin: 04/01/17 17:49 Dose: 2 mg Morphine Sulfate (Morphine) 2 mg IVPUSH Q2H PRN PRN Reason: Dyspnea Last Admin: 04/02/17 06:09 Dose: 2 mg Non-Formulary Medication (Budesonide/Formoterol Fumarate) 1 puff IH BID [facility] Non-Formulary Medication (Ranitidine Hcl [Ranitidine]) 150 mg PO BID [facility] - Exam Quality Assessment: Supplemental Oxygen General: Alert, Oriented, Cooperative HEENT: Pupils Equal, Pupils Reactive, EOMI, Mucous Membr. Moist/[place] Neck: Supple Lungs: Clear to Auscultation, Normal Respiratory Effort, Decreased Breath Sounds Cardiovascular: Regular Rate, Regular Rhythm GI/Abdominal Exam: Normal Bowel Sounds, Soft, Non-Tender, No Organomegaly, No Distention, No Abnormal Bruit, No Mass, Pelvis Stable Back Exam: Normal Inspection, Full Range of Motion Extremities: Pedal Edema Skin: Warm, Dry, Intact Neurological: No New Focal Deficit Psy/Mental Status: Alert, Normal Affect, Normal Mood - Problem List & Annotations (1) CHF (congestive heart failure) SNOMED Code(s): 48755553 Code(s): I50.9 - HEART FAILURE, UNSPECIFIED Status: Acute Priority: High Current Visit: Yes Onset Date: 04/01/17 Qualifiers: Congestive heart failure type: unspecified congestive heart failure type Congestive heart failure chronicity: acute on chronic Qualified Code(s): I50.9 - Heart failure, unspecified Annotation/Comment:: Significant CHF based on clinical exam, BNP, and chest x- ray today. High-dose IV Lasix given in the emergency room. No further extensive cardiac workup, including echocardiogram, etc. per his comfort care status as below. Continue aggressive IV Lasix therapy. Telephone consultation at 17:[address] Gavin, hospitalist at the [facility] in [place], who does not have a bed available in that facility. Various therapeutic options were discussed with the patient who agrees to admission to our facility. Initiate standard rule out AR orders, however no recent anginal complaints. Giancarlo Luna M.D., at the [facility], assumes patient care in the a.m. area. Observe left pleural effusion for now with consideration of thoracentesis, if this remains refractory to aggressive Lasix therapy (2) COPD (chronic obstructive pulmonary disease) SNOMED Code(s): 28262855 Code(s): J44.9 - CHRONIC OBSTRUCTIVE PULMONARY DISEASE, UNSPECIFIED Status : Acute Priority: High Current Visit: Yes Qualifiers: COPD type: COPD with acute lower respiratory infection Qualified Code(s): J44.0 - Chronic obstructive pulmonary disease with acute lower respiratory infection Annotation/Comment:: COPD exacerbation secondary to possible middle lobe pneumonia however note concomitant CHF and 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 Triple nebulizer treatment given in the emergency room with additional morphine nebulizer treatment required prior to admission (3) Hyperphosphatemia SNOMED Code(s): 03793007 Code(s): E83.39 - OTHER DISORDERS OF PHOSPHORUS METABOLISM Status: Acute Priority: Medium Current Visit: Yes Onset Date: 04/01/17 Annotation/ Comment:: Note renal insufficiency. Initiate PhosLo (4) Comfort measures only status SNOMED Code(s): 33922389412776 Code(s): Z51.5 - ENCOUNTER FOR PALLIATIVE CARE Status: Chronic Priority: High Current Visit: Yes Onset Date: 04/01/17 Annotation/Comment:: Comfort Care status/NO CODE status confirmed with the patient today, although he is agreeable to transfer to [place] - Problem List Review Problem List Initiated/Reviewed/Updated: Yes - My Orders Last 24 Hours: My Active Orders 04/02/17 08:00 Folic Acid 1 mg PO DAILY 04/02/17 11:35 Vital Signs [RC] Q4HWA 04/02/17 12:45 Chest 2V [CR] AM CBC WITH AUTO DIFF [HEME] AM 04/03/17 05:15 BASIC METABOLIC PANEL,BMP [CHEM] AM
[2017-04-02] MEDS ORDERED: Sodium Chloride 0.9% Inhalation Soln 3 ML Neb INH PRN (14:04)
[2017-04-02] MEDS: Morphine 2 MG/ML Syringe PRN ×2 (14:18→16:55)
--- NOTE | 2017-04-02 15:16 | PCM.DCSUM1 ---
Discharge Summary - Hospital Course Free Text/Narrative:: This is Dr. Luna dictating on Felice Chavarria at this time patient is seen will transfer to the [facility] at patient's request spoke with airport operations coordinator at the [facility] who had had report and attending agreed to receive transfer patient today having increased shortness of breath and saturations dropping at this time review her labs revealed his creatinine to be a 2.7 patient was decreased during the day multiple albuterol treatments were given for his COPD which improved his saturations slightly at this time we went ahead and ordered morphine 2 mg IV and this is improved his saturations to about 92% his creatinine is at 2.7 to and his BNP was 25,000 he does not appear in any respiratory distress he is moving air but diminished breath sounds laterally x- rays reveal pleural effusion in both the right and left left greater than right. Doppler of lower extremities reveal no DVTs at this time. Spoke to the [facility] will accept transfer - Discharge Data Discharge Date: 04/02/17 Discharge Disposition: DC/Tfer to [facility] Condition: Fair - Discharge Diagnosis/Problem(s) (1) CHF (congestive heart failure) SNOMED Code(s): 85269385 ICD Code: I50.9 - HEART FAILURE, UNSPECIFIED Status: Acute Priority: High Current Visit: Yes Onset Date: 04/01/17 Problem Details: Significant CHF based on clinical exam, BNP, and chest x-ray today. High-dose IV Lasix given in the emergency room. No further extensive cardiac workup, including echocardiogram, etc. per his comfort care status as below. Continue aggressive IV Lasix therapy. Telephone consultation at 17:[address] Gavin, hospitalist at the [facility], who does not have a bed available in that facility. Various therapeutic options were discussed with the patient who agrees to admission to our facility. Initiate standard rule out PA orders, however no recent anginal complaints. Giancarlo Luna M.D., at the [facility], assumes patient care in the a.m. area. Observe left pleural effusion for now with consideration of thoracentesis, if this remains refractory to aggressive Lasix therapy 04-02-17 [facility] has now accepted transfer of this patient Qualifiers: Congestive heart failure type: unspecified congestive heart failure type Congestive heart failure chronicity: acute on chronic Qualified Code(s): I50.9 - Heart failure, unspecified (2) COPD (chronic obstructive pulmonary disease) SNOMED Code(s): 35780208 ICD Code: J44.9 - CHRONIC OBSTRUCTIVE PULMONARY DISEASE, UNSPECIFIED Status : Acute Priority: High Current Visit: Yes Problem Details: COPD exacerbation. Chest X ray noted bilateral pleaural effusion and worsening of COPD. Troponins negative. Qualifiers: COPD type: COPD with acute lower respiratory infection Qualified Code(s): J44.0 - Chronic obstructive pulmonary disease with acute lower respiratory infection (3) Hyperphosphatemia SNOMED Code(s): 41842541 ICD Code: E83.39 - OTHER DISORDERS OF PHOSPHORUS METABOLISM Status: Acute Priority: Medium Current Visit: Yes Onset Date: 04/01/17 Problem Details : Note renal insufficiency. (4) Comfort measures only status SNOMED Code(s): 32793171911527 ICD Code: Z51.5 - ENCOUNTER FOR PALLIATIVE CARE Status: Chronic Priority : High Current Visit: Yes Onset Date: 04/01/17 Problem Details: Comfort Care status/NO CODE status confirmed with the patient today, although he is agreeable to transfer to [place] 04-02-17 [facility] Patient Instructions Diet: Heart Healthy Diet Fluid Restriction: 1500 mL Activity: As Tolerated - Discharge Plan Home Medications: Home Meds Albuterol Sulfate [Proair Hfa] 2 puff INH Q4H PRN 04/01/17 [History] Aspirin 325 mg PO DAILY 04/01/17 [History] Budesonide/Formoterol Fumarate [Symbicort 160-4.5 Mcg Inhaler] 1 puff IH BID [History] Carvedilol [Coreg] 12.5 mg PO BID 04/01/17 [History] Cholecalciferol (Vitamin D3) [Vitamin D3] 1,000 unit PO DAILY 04/01/17 [History] Folic Acid 800 mcg PO DAILY 04/01/17 [History] Furosemide [Lasix] 40 mg PO DAILY 04/01/17 [History] Methylsulfonylmethane [MSM] 1,000 mg PO DAILY 04/01/17 [History] Multivitamin [Multivitamins] 1 tab PO DAILY 04/01/17 [History] Ranitidine HCl [Ranitidine] 150 mg PO BID 04/01/17 [History] Tiotropium [Spiriva HandiHaler] 1 inh INH BEDTIME 04/01/17 [History] Tuberculin, PPD [Aplisol] 0.1 ml ID ONETIME 04/01/17 [History] Ubidecarenone [Coenzyme Q10] 200 mg PO DAILY 04/01/17 [History] amLODIPine [Norvasc] 10 mg PO DAILY 04/01/17 [History] atorvaSTATin Calcium [Atorvastatin Calcium] 40 mg PO BEDTIME 04/01/17 [History] hydrALAZINE [Apresoline] 20 mg PO TID 04/01/17 [History] Albuterol [IJD: Albuterol] 2.5 mg NEB Q2H PRN nebule 04/02/17 [Rx] Albuterol/Ipratropium [DuoNeb 3.0-0.5 MG/3 ML] 3 ml NEB Q4HRRT PRN neb [Rx] Albuterol/Ipratropium [DuoNeb 3.0-0.5 MG/3 ML] 3 ml NEB Q6HRRT neb 04/02/17 [Rx ] Budesonide [Pulmicort] 0.5 mg NEB BIDRT neb 04/02/17 [Rx] Calcium Acetate [PhosLo] 667 mg PO BIDMEALS cap 04/02/17 [Rx] Ciprofloxacin in D5W [Cipro in D5W 200 MG/100 ML] 200 mg IV Q24H bag 04/02/17 [ Rx] Dextromethorphan/guaiFENesin [Mucinex DM ER 600-30 MG] 1 tab PO BID tab.er [Rx] Famotidine [Pepcid] 20 mg IVPUSH QPM sdv 04/02/17 [Rx] Furosemide [Lasix] 40 mg IVPUSH Q6H vial 04/02/17 [Rx] Morphine 2 mg .XX Q1H PRN syringe 04/02/17 [Rx] Morphine 2 mg IVPUSH Q1H PRN syringe 04/02/17 [Rx] Sodium Chloride 0.9% 3 ml INH Q1H PRN neb 04/02/17 [Rx] cefTRIAXone [Rocephin] 1 gm IV Q12H vial 04/02/17 [Rx] Forms: ED Department Discharge Referrals: Chaparrita Guy PA [Primary Care Provider] - - Review of Systems General: Reports: Weakness, Fatigue HEENT: Reports: No Symptoms Pulmonary: Reports: Shortness of Breath Cardiovascular: Reports: Dyspnea on Exertion Gastrointestinal: Reports: No Symptoms Genitourinary: Reports: No Symptoms Musculoskeletal: Reports: No Symptoms Skin: Reports: No Symptoms Neurological: Reports: No Symptoms Psychiatric: Reports: No Symptoms - Patient Data Vitals - Most Recent: Last Vital Signs Temp 97.7 F 04/02/17 12:00 Pulse 59 L 04/02/17 12:00 Resp 17 04/02/17 12:00 BP 139/53 L 04/02/17 12:00 Pulse Ox 86 L 04/02/17 12:00 Weight - Most Recent: 157 lb I&O - Last 24 hours: Intake & Output 04/02/17 04/02/17 04/02/17 06:59 14:59 22:59 Intake Total 1500 Output Total 950 450 Balance -950 1050 Lab Results - Last 24 hrs: Laboratory Results - last 24 hr 04/02/17 04/02/17 04/02/17 Range/Units 07:00 07:00 07:00 WBC 8.2 (4.0-10.2) K/uL RBC 2.60 L (4.33-5.41) M/uL Hgb 8.8 L (13.1-16.8) g/dL Hct 27.4 L (39.0-49.0) % MCV 105.4 H (84.0-98.0) fL MCH 33.8 H (28.2-33.3) pg MCHC 32.1 (31.7-36.0) g/dL RDW 14.7 H (11.2-14.1) % Plt Count 195 (150-350) K/uL Neut % (Auto) 72.9 (45.0-80.0) % Lymph % (Auto) 9.7 L (10.0-50.0) % [place] % (Auto) 12.4 (2.0-14.0) % Eos % (Auto) 4.6 (0.0-5.0) % Baso % (Auto) 0.4 (0.0-2.0) % Neut # (Auto) 5.99 (1.40-7.00) K/uL Lymph # (Auto) 0.80 (0.50-3.50) K/uL [place] # (Auto) 1.02 H (0.00-1.00) K/uL Eos # (Auto) 0.38 (0.00-0.50) K/uL Baso # (Auto) 0.03 (0.00-0.20) K/uL D-Dimer, Quantitative 1500 H (0-400) ng/mL Sodium 142 (136-145) mmol/L Potassium 4.5 (3.5-5.1) mmol/L Chloride 108 H (98-107) mmol/L Carbon Dioxide 30.2 (21.0-32.0) mmol/L BUN 47 H (7-18) mg/dL Creatinine 2.79 H (0.51-1.17) mg/dL Est Cr Clr Drug Dosing 18.79 mL/min Estimated GFR (MDRD) 22 mL/min Glucose 97 (74-106) mg/dL Calcium 8.2 L (8.5-10.1) mg/dL Iron (50-175) ug/dL TIBC (250-450) ug/dL % Saturation Ferritin (8-388) ng/mL Total Bilirubin 0.2 (0.2-1.0) mg/dL AST 24 (15-37) U/L ALT 20 (12-78) U/L Alkaline Phosphatase 68 (46-116) IU/L Creatine Kinase 81 (26-308) U/L Creatine Kinase Index 3.2 H (0.0-2.5) % CK-MB (CK-2) 2.60 (0.00-3.60) ng/mL Troponin I 0.016 (0.000-0.056) ng/mL NT-Pro-B Natriuret Pep 44932 H (0-125) pg/mL Total Protein 5.5 L (6.4-8.2) g/dL Albumin 2.0 L (3.4-5.0) g/dL Triglycerides 59 (30-150) mg/dL Cholesterol 132 (100-200) mg/dL LDL Cholesterol, Calc 43 (0-100) mg/dL HDL Cholesterol 77 H (40-60) mg/dL Vitamin B12 585 (193-986) pg/mL 04/02/17 Range/Units 07:00 WBC (4.0-10.2) K/uL RBC (4.33-5.41) M/uL Hgb (13.1-16.8) g/dL Hct (39.0-49.0) % MCV (84.0-98.0) fL MCH (28.2-33.3) pg MCHC (31.7-36.0) g/dL RDW (11.2-14.1) % Plt Count (150-350) K/uL Neut % (Auto) (45.0-80.0) % Lymph % (Auto) (10.0-50.0) % [place] % (Auto) (2.0-14.0) % Eos % (Auto) (0.0-5.0) % Baso % (Auto) (0.0-2.0) % Neut # (Auto) (1.40-7.00) K/uL Lymph # (Auto) (0.50-3.50) K/uL [place] # (Auto) (0.00-1.00) K/uL Eos # (Auto) (0.00-0.50) K/uL Baso # (Auto) (0.00-0.20) K/uL D-Dimer, Quantitative (0-400) ng/mL Sodium (136-145) mmol/L Potassium (3.5-5.1) mmol/L Chloride (98-107) mmol/L Carbon Dioxide (21.0-32.0) mmol/L BUN (7-18) mg/dL Creatinine (0.51-1.17) mg/dL Est Cr Clr Drug Dosing mL/min Estimated GFR (MDRD) mL/min Glucose (74-106) mg/dL Calcium (8.5-10.1) mg/dL Iron 27 L (50-175) ug/dL TIBC 198 L (250-450) ug/dL % Saturation 13.80068 Ferritin 95 (8-388) ng/mL Total Bilirubin (0.2-1.0) mg/dL AST (15-37) U/L ALT (12-78) U/L Alkaline Phosphatase (46-116) IU/L Creatine Kinase (26-308) U/L Creatine Kinase Index (0.0-2.5) % CK-MB (CK-2) (0.00-3.60) ng/mL Troponin I (0.000-0.056) ng/mL NT-Pro-B Natriuret Pep (0-125) pg/mL Total Protein (6.4-8.2) g/dL Albumin (3.4-5.0) g/dL Triglycerides (30-150) mg/dL Cholesterol (100-200) mg/dL LDL Cholesterol, Calc (0-100) mg/dL HDL Cholesterol (40-60) mg/dL Vitamin B12 (193-986) pg/mL Med Orders - Current: Current Medications Albuterol (Proventil Neb Soln) 2.5 mg NEB Q2H PRN PRN Reason: Dyspnea Last Admin: 04/02/17 13:57 Dose: 2.5 mg Albuterol/Ipratropium (Duoneb 3.0-0.5 Mg/3 Ml) 3 ml NEB Q4HRRT PRN PRN Reason: Dyspnea Last Admin: 04/02/17 06:41 Dose: 3 ml Albuterol/Ipratropium (Duoneb 3.0-0.5 Mg/3 Ml) 3 ml NEB Q6HRRT [facility] Last Admin: 04/02/17 13:05 Dose: 3 ml Amlodipine Besylate (Norvasc) 10 mg PO DAILY [facility] Last Admin: 04/02/17 07:43 Dose: 10 mg Aspirin (Aspirin) 325 mg PO DAILY [facility] Last Admin: 04/02/17 07:42 Dose: 325 mg Atorvastatin Calcium (Lipitor) 40 mg PO BEDTIME [facility] Last Admin: 04/01/17 19:33 Dose: 40 mg Budesonide (Pulmicort) 0.5 mg NEB BIDRT [facility] Last Admin: 04/02/17 09:10 Dose: Not Given Calcium Acetate (Phoslo) 667 mg PO BIDMEALS [facility] Last Admin: 04/02/17 07:42 Dose: 667 mg Carvedilol (Coreg) 12.5 mg PO BID [facility] Last Admin: 04/02/17 07:43 Dose: 12.5 mg Coenzyme Q10 (Coenzyme Q10) 200 mg PO DAILY [facility] Last Admin: 04/02/17 07:43 Dose: 200 mg Famotidine (Pepcid) 20 mg IVPUSH QPM [facility] Folic Acid (Folic Acid) 1 mg PO DAILY [facility] Last Admin: 04/02/17 09:10 Dose: 1 mg Furosemide (Lasix) 40 mg IVPUSH Q6H [facility] Last Admin: 04/02/17 12:56 Dose: 40 mg Guaifenesin/Dextromethorphan (Mucinex Dm Er 600-30 Mg) 1 tab PO BID [facility] Last Admin: 04/02/17 07:42 Dose: 1 tab Ceftriaxone Sodium 1 gm/ (Sodium Chloride) 100 mls @ 200 mls/hr IV Q12H [facility] Last Admin: 04/02/17 06:40 Dose: 200 mls/hr Ciprofloxacin/Dextrose 200 mg/ (Premix) 100 mls @ 100 mls/hr IV Q24H [facility] Last Admin: 04/01/17 20:19 Dose: 100 mls/hr Morphine Sulfate (Morphine) 2 mg .XX Q1H PRN PRN Reason: Dyspnea Last Admin: 04/02/17 14:18 Dose: 2 mg Morphine Sulfate (Morphine) 2 mg IVPUSH Q1H PRN PRN Reason: Shortness of Breath Last Admin: 04/02/17 15:06 Dose: 2 mg Hydralazine [ Apresoline] 10mg Tabs 20 mg PO TID [facility] Last Admin: 04/02/17 12:54 Dose: 20 mg Sodium Chloride (Saline Flush) 10 ml FLUSH ASDIRECTED PRN PRN Reason: Keep Vein Open Last Admin: 04/02/17 15:10 Dose: 10 ml Sodium Chloride (Saline Flush) 10 ml FLUSH Q12H [facility] Last Admin: 04/02/17 06:41 Dose: 10 ml Sodium Chloride (Sodium Chloride 0.9%) 3 ml INH Q1H PRN PRN Reason: Shortness of Breath Temazepam (Restoril) 15 mg PO BEDTIME PRN PRN Reason: Insomnia Tiotropium [place] (Spiriva Handihaler) 18 mcg INH BEDTIME [facility] Last Admin: 04/01/17 19:34 Dose: 1 inhalation Discontinued Medications Albuterol/Ipratropium (Duoneb 3.0-0.5 Mg/3 Ml) 3 ml NEB ONETIME ONE Stop: 04/01/17 17:13 Last Admin: 04/01/17 17:15 Dose: 3 ml Albuterol/Ipratropium (Duoneb 3.0-0.5 Mg/3 Ml) 3 ml NEB Q6HRRT [facility] Budesonide (Pulmicort) 0.5 mg NEB ONETIME ONE Stop: 04/01/17 17:13 Last Admin: 04/01/17 17:24 Dose: 0.5 mg Famotidine (Pepcid) 40 mg IVPUSH ONETIME ONE Stop: 04/01/17 16:33 Last Admin: 04/01/17 16:55 Dose: 40 mg Furosemide (Lasix) 60 mg IVPUSH NOW ONE Stop: 04/01/17 16:33 Last Admin: 04/01/17 16:55 Dose: 60 mg Furosemide (Lasix) 40 mg IVPUSH Q8H [facility] Last Admin: 04/02/17 07:06 Dose: Not Given Magnesium Sulfate 2 gm/ Premix 50 mls @ 25 mls/hr IV ONETIME ONE Stop: 04/02/17 09:29 Last Admin: 04/02/17 07:38 Dose: 25 mls/hr Morphine Sulfate (Morphine) 2 mg .XX ONETIME ONE Stop: 04/01/17 17:45 Last Admin: 04/01/17 17:49 Dose: 2 mg Morphine Sulfate (Morphine) 2 mg IVPUSH Q2H PRN PRN Reason: Dyspnea Last Admin: 04/02/17 06:09 Dose: 2 mg Morphine Sulfate (Morphine) 2 mg IVPUSH Q1H PRN PRN Reason: Dyspnea Non-Formulary Medication (Budesonide/Formoterol Fumarate) 1 puff IH BID [facility] Non-Formulary Medication (Ranitidine Hcl [Ranitidine]) 150 mg PO BID ALICE - Exam General: Reports: Alert, Oriented HEENT: Reports: Pupils Equal, Pupils Reactive, EOMI, Mucous Membr. Moist/[place] Neck: Reports: Supple Lungs: Reports: Decreased Breath Sounds (x ray noted bilateral pleural effusions ) Cardiovascular: Reports: Regular Rate, Regular Rhythm GI/Abdominal Exam: Normal Bowel Sounds, Soft, Non-Tender, No Organomegaly, No Distention, No Abnormal Bruit, No Mass, Pelvis Stable (Male) Exam: Deferred Rectal (Males) Exam: Deferred Back Exam: Reports: Normal Inspection, Full Range of Motion Extremities: Normal Inspection, Normal Range of Motion, Non-Tender, Normal Capillary Refill, Pedal Edema, Other (preliminary doppler showed no DVT ) Skin: Reports: Warm, Dry, Intact Neurological: Reports: No New Focal Deficit Psy/Mental Status: Reports: Alert, Normal Affect, Normal Mood *Q Meaningful Use (DIS) - VTE *Q VTE Criteria *Q: - Stroke *Q Stroke Criteria *Q: - AMI *Q AMI Criteria *Q:
[2017-04-02] MEDS ORDERED: Non-Formulary Medication 1 Each (Ranitidine Hcl [Ranitidine] 150 MG) PO SCH (18:00)
[2017-04-02] MEDS ORDERED: Famotidine 20 MG/2 ML SDV IVPUSH SCH (18:00)
[2017-04-02 18:08] VITALS: BP 161/69
[2017-04-02] MEDS ORDERED: Albuterol/Ipratropium 3.0-0.5 MG/3 ML Neb Soln NEB SCH (20:00)
== END 2017-04-02 17:10 | DRG 190 ==
LOC: LL.ED 16:19 → LL.MS 18:01
PROVIDERS: ADMIT Family Medicine; ATTEND Family Medicine
DX: J44.0 Chronic obstructive pulmonary disease with (acute) lower respiratory infection (principal); J18.9 Pneumonia, unspecified organism; I13.0 Hypertensive heart and chronic kidney disease with heart failure and stage 1 through stage 4 chronic kidney disease, or unspecified chronic kidney disease; J44.1 Chronic obstructive pulmonary disease with (acute) exacerbation; I25.10 Atherosclerotic heart disease of native coronary artery without angina pectoris; N18.9 Chronic kidney disease, unspecified; I10 Essential (primary) hypertension; I50.9 Heart failure, unspecified; M19.90 Unspecified osteoarthritis, unspecified site; D53.9 Nutritional anemia, unspecified; N28.9 Disorder of kidney and ureter, unspecified; N25.81 Secondary hyperparathyroidism of renal origin; F17.200 Nicotine dependence, unspecified, uncomplicated; R79.89 Other specified abnormal findings of blood chemistry; K21.9 Gastro-esophageal reflux disease without esophagitis; E88.09 Other disorders of plasma-protein metabolism, not elsewhere classified; E78.5 Hyperlipidemia, unspecified; Z51.5 Encounter for palliative care; E83.39 Other disorders of phosphorus metabolism; F17.210 Nicotine dependence, cigarettes, uncomplicated; Z79.82 Long term (current) use of aspirin; Z79.899 Other long term (current) drug therapy; R06.02 Shortness of breath; R09.1 Pleurisy; Z99.81 Dependence on supplemental oxygen
CPT/HCPCS: 36415; 71020; 82272; 82550; 82553; 83036; 83605; 83735; 84100 ×2; 84443; 84484; 84550; 85379; 85610; 85730; 87040 ×2; 93005; 94640 ×3; 94664; 96374; 96375; 99285; J1940; J2270; J7050; 51702; 71010; 80053; 80061; 82607; 82728; 83540; 83550; 83880; 84466; 85025; 87641; 93970; A9270-GY; J0696; J0744; J3475; J7620-GY; S0028